=== PATIENT | female | born 1985 | race Caucasian/White ===

== ENCOUNTER 2018-10-22 02:41 | Inpatient (IN) | payer OTHER ==
[~2018-10-22] VITALS: Ht 154.9 cm; Wt 74.3 kg
[~2018-10-22 02:41] MED LIST: OMEPRAZOLE 20 M20 M1 PO
[2018-10-22 02:48] VITALS: BP 140/91
[2018-10-22 03:04] LABS: URINE BILIRUBIN NEGATIVE (Negative); URINE BLOOD NEGATIVE (Negative); URINE CLARITY CLEAR; URINE COLOR YELLOW; URINE GLUCOSE-RANDOM* NEGATIVE (Negative); URINE KETONES 2+ (Negative); URINE LEUKOCYTES-REFLEX NEGATIVE (Negative); URINE NITRITE-REFLEX NEGATIVE (Negative); URINE PROTEIN (DIPSTICK) TRACE (Negative)
[2018-10-22 03:14] LABS: ABSOLUTE NEUTROPHILS 4.9 thou/uL (1.4-8.2); BASOPHILS 0.4 % (0.0-2.0); EOSINOPHILS 0.5 % (0.0-3.0); HEMATOCRIT 40.7 % (37.0-47.0); HEMOGLOBIN 13.8 gm/dL (12.0-15.0); LYMPHOCYTES 21.6 % (24.0-44.0); MCH 29.2 pg (26.0-34.0); MCHC 33.9 g/dL (28.0-37.0); MONOCYTES 5.8 % (1.0-8.0); PLATELET COUNT 253 thou/uL (150-400); POLYS 71.7 % (36.0-66.0); RBC 4.73 mil/uL (4.20-5.00); WBC 6.8 thou/uL (4.0-11.0)
[2018-10-22 03:21] LABS: ANION GAP 10 mmol/L (7-16); BUN 13 mg/dL (7-18); CALCIUM 9.5 mg/dL (8.5-10.1); CHLORIDE 101 mmol/L (98-107); CO2 29 mmol/L (21-32); CREATININE 0.8 mg/dL (0.6-1.0); GLUCOSE 118 mg/dL (74-106); POTASSIUM 3.7 mmol/L (3.5-5.1); SODIUM 140 mmol/L (136-145)
[2018-10-22 03:27] LABS: ALBUMIN 4.4 g/dL (3.4-5.0); SGOT 411 U/L (15-37); SGPT 538 U/L (30-65); TOTAL BILIRUBIN 1.3 mg/dL (<0.1-1.0); TOTAL PROTEIN 7.9 g/dL (6.4-8.2)
[2018-10-22 04:13] LABS: LIPASE > 30000 U/L (73-393)
[2018-10-22 13:42] VITALS: BP 105/86
[2018-10-22 15:00] VITALS: BP 121/70
[2018-10-22 19:49] VITALS: BP 116/62
[2018-10-23 02:05] LABS: HAV IgM AB (ANTI-HAV IgM) Negative (Negative); HEPATITIS B SURFACE AG Negative (Negative); HEPATITIS C VIRUS AB <0.1 (0.0-0.9)
[2018-10-23 05:01] VITALS: BP 116/67
[2018-10-23 05:32] LABS: HEMATOCRIT 32.8 % (37.0-47.0); MCH 29.7 pg (26.0-34.0); MCHC 33.8 g/dL (28.0-37.0); MCV 87.7 fL (80.0-100.0); RBC 3.74 mil/uL (4.20-5.00); RDW 13.2 % (10.5-14.5); WBC 4.3 thou/uL (4.0-11.0)
[2018-10-23 05:34] LABS: HEMOGLOBIN 11.1 gm/dL (12.0-15.0)
[2018-10-23 05:46] LABS: ALBUMIN 3.2 g/dL (3.4-5.0); CALCIUM 8.2 mg/dL (8.5-10.1); CREATININE 0.7 mg/dL (0.6-1.0); TOTAL BILIRUBIN 0.7 mg/dL (<0.1-1.0); TOTAL PROTEIN 5.9 g/dL (6.4-8.2)
[2018-10-23 08:28] VITALS: BP 112/56
[2018-10-23 16:51] VITALS: BP 112/66
[2018-10-23 20:08] VITALS: BP 126/85
[2018-10-24 04:31] VITALS: BP 149/69
[2018-10-24 07:11] VITALS: BP 117/68
[2018-10-24 10:47] LABS: HEMATOCRIT 39.5 % (37.0-47.0); MCH 29.2 pg (26.0-34.0); MCHC 33.8 g/dL (28.0-37.0); MCV 86.4 fL (80.0-100.0); RBC 4.57 mil/uL (4.20-5.00); RDW 12.6 % (10.5-14.5)
[2018-10-24 10:57] LABS: HEMOGLOBIN 13.3 gm/dL (12.0-15.0)
[2018-10-24 11:01] LABS: % SATURATION 14 % (20-39); IRON 36 ug/dL (50-170); TIBC 254 ug/dL (250-450)
[2018-10-24 11:17] LABS: ALBUMIN 4.1 g/dL (3.4-5.0); CALCIUM 9.4 mg/dL (8.5-10.1); CREATININE 0.8 mg/dL (0.6-1.0); MAGNESIUM 1.6 mg/dL (1.8-2.4); PHOSPHORUS 3.1 mg/dL (2.5-4.9); TOTAL BILIRUBIN 0.9 mg/dL (<0.1-1.0); TOTAL PROTEIN 7.6 g/dL (6.4-8.2)
[2018-10-24 19:58] VITALS: BP 113/71
[2018-10-25 05:00] VITALS: BP 115/65
[2018-10-25 05:17] LABS: INR 1.1; PROTIME 11.7 Seconds (9.3-11.4)
[2018-10-25 05:29] LABS: ALBUMIN 3.8 g/dL (3.4-5.0); CALCIUM 8.9 mg/dL (8.5-10.1); CREATININE 0.8 mg/dL (0.6-1.0); MAGNESIUM 2.1 mg/dL (1.8-2.4); POTASSIUM 4.1 mmol/L (3.5-5.1); TOTAL PROTEIN 7.2 g/dL (6.4-8.2)
[2018-10-25 06:29] VITALS: BP 137/76
[2018-10-25 12:30] VITALS: BP 124/77
[2018-10-25 17:04] VITALS: BP 131/81
[2018-10-25 20:36] VITALS: BP 122/79
[2018-10-26 01:19] VITALS: BP 122/63
[2018-10-26 04:14] VITALS: BP 110/61
[2018-10-26 05:44] LABS: ALBUMIN 3.7 g/dL (3.4-5.0); CALCIUM 8.9 mg/dL (8.5-10.1); CREATININE 0.7 mg/dL (0.6-1.0); MAGNESIUM 1.7 mg/dL (1.8-2.4); PHOSPHORUS 3.5 mg/dL (2.5-4.9); POTASSIUM 4.5 mmol/L (3.5-5.1); TOTAL BILIRUBIN 0.6 mg/dL (<0.1-1.0); TOTAL PROTEIN 6.7 g/dL (6.4-8.2)
[2018-10-26 05:48] LABS: BASOPHILS 0.2 % (0.0-2.0); EOSINOPHILS 0.2 % (0.0-3.0); HEMATOCRIT 36.9 % (37.0-47.0); HEMOGLOBIN 12.4 gm/dL (12.0-15.0); MCH 29.2 pg (26.0-34.0); MCHC 33.5 g/dL (28.0-37.0); MCV 87.3 fL (80.0-100.0); PLATELET COUNT 284 thou/uL (150-400); POLYS 77.6 % (36.0-66.0); RBC 4.23 mil/uL (4.20-5.00); RDW 12.6 % (10.5-14.5); WBC 7.8 thou/uL (4.0-11.0)
[2018-10-26 08:09] VITALS: BP 111/58
[2018-10-26] MEDS ORDERED: AUGMENTIN 875-1 EACH PO (10:33)
[2018-10-26] MEDS ORDERED: HYDROCODON-ACE1 EAC7 PO (10:58)
[2018-10-26] MEDS ORDERED: MIRALAX17 GM PO (10:58)
[2018-10-26] MEDS ORDERED: COLACE 100 MG100 MG PO (10:59)
[2018-10-26 11:14] VITALS: BP 111/58
[2018-10-26 11:45] VITALS: BP 121/81
--- NOTE | 2018-10-26 17:06 | PATH ---
[facility] [address] [place] [address] PATHOLOGY RPT PROCEDURE Name: STELLA PEÑA Room #: 208-P [facility] IN M.R.#: [id number] Admission: 10/22/18 Date of : 87 Discharge: 10/26/18 Report #: [id number] Path Case #: [id number] [facility] Accession Number: [id number] . 01 Material submitted: . gallbladder - GALLBLADDER . 01 Clinical history: . Gallstone pancreatitis . 02 Diagnosis: Gallbladder, cholecystectomy: - Mild chronic cholecystitis. - Cholelithiasis. (IUV:it application architect; 10/26/2018) . MBR/10/26/2018 . 02 Electronically signed: . Alicia Sawant MD, Pathologist NPI- [id number] . 01 Gross description: . The specimen is received in formalin, labeled "Stella Peña, gallbladder". Received is an intact gallbladder measuring 8.9 x 2.7 x 2.4 cm in greatest dimensions displaying a pink-tucker serosal surface. Opening the specimen reveals a velvety, light guzmán, bile-stained mucosa with a gallbladder wall thickness of 0.1 cm. Calculi are present displaying a bright yellow and multifaceted appearance, and no masses or lesions are noted grossly. Dope Heater sections, to include the proximal margin, are submitted in cassette A1. (CAA; 10/25/2018) QAC/QAC . 02 Pathologist provided ICD-10: K80.10 . 02 CPT . 231450 Specimen Comment: A courtesy copy of this report has been sent to Specimen Comment: [phone], , . Specimen Comment: Report sent to ,DR GARZA / DR ALLEN Performed at: [address] [id number] MD Raffaele Huerta MD Phone: [phone] Performed at: [address] [address] PATHOLOGY RPT PROCEDURE Name: PEÑASTELLA Room #: 208-P [facility] IN M.R.#: [id number] Admission: 10/22/18 Date of : 87 Discharge: 10/26/18 Report #: [id number] Path Case #: [id number] [facility] [address] [id number] MD Alicia Sawant MD Phone: [phone]
== END 2018-10-26 13:29 | disposition home or self-care (01) | DRG 417 ==
LOC: ER 02:41 → 2N 04:46 → EROBS 04:46 → 2N 14:58
PROVIDERS: Emergency Medicine; Internal Medicine; ADMIT Hospitalist
PROC: BF121ZZ Fluoroscopy of Gallbladder using Low Osmolar Contrast (ICD-10-PCS; principal; 2018-10-25)
PROC: 0FT44ZZ Resection of Gallbladder, Percutaneous Endoscopic Approach (ICD-10-PCS; principal; 2018-10-25)
DX: K80.10 Calculus of gallbladder with chronic cholecystitis without obstruction (principal); K85.10 Biliary acute pancreatitis without necrosis or infection; E80.6 Other disorders of bilirubin metabolism; R74.0 Nonspecific elevation of levels of transaminase and lactic acid dehydrogenase [LDH]; E83.42 Hypomagnesemia; E66.9 Obesity, unspecified; Z68.30 Body mass index [BMI] 30.0-30.9, adult; Z79.899 Other long term (current) drug therapy
CPT/HCPCS: 10194; 50010; 50101; 50249; 50411; 50555; 50558; 51489; 52265; 52266; 53307; 53310; 53312; 54022; 54118; 55245; 56462; 56525; 56526; 56674; 62110; 62900; 70005